=== PATIENT | female | born 1975 | race Caucasian/White ===

== ENCOUNTER → 2018-09-30 12:05 | Outpatient (CLI) | payer OTHER, SELFPAY ==
[2018-09-30 12:51] LABS: Add Manual Diff / Slide Review NO; Basophils Absolute Auto 0 /uL (0-100); Basophils Percent Auto 0.5 % (0-2); Eosinophils Absolute Auto 100 /uL (0-450); Eosinophils Percent Auto 2.1 % (2-4); Hematocrit 40.1 % (36-46); Hemoglobin 13.2 g/dL (12.0-16.0); Lymphocytes Absolute Auto 2300 /uL (1100-4500); Lymphocytes Percent Auto 34.8 % (25-40); Mean Corpuscular Hemoglobin 26.9 PG (26-34); Mean Corpuscular Volume 81.6 fL (80-100); Monocytes Absolute Auto 500 /uL (0-900); Monocytes Percent Auto 7.9 % (3-14); Neutrophils Absolute Auto 3700 /uL (1500-7000); Neutrophils Percent Auto 54.7 % (50-75); Platelet Count 272 X10^3/uL (150-400); Red Blood Cell Count 4.91 X10^6/uL (4.0-5.2); Red Cell Distribution Width 15.5 % (11.6-14.8); White Blood Cell Count 6.7 X10^3/uL (4.5-11.0)
[2018-09-30 13:34] LABS: Alanine Aminotransferase 26 IU/L (9-52); Albumin 4.1 g/dL (3.5-5.0); Albumin Globulin Ratio 1.1 (1.0-2.8); Alkaline Phosphatase 78 U/L (38-126); Aspartate Aminotransferase 17 IU/L (14-36); Bilirubin Total 0.4 mg/dL (0.2-1.3); Blood Urea Nitrogen 9 mg/dL (7-17); Calcium 8.8 mg/dL (8.4-10.2); Carbon Dioxide 23 mmol/L (22-32); Chloride 108 mmol/L (98-107); Cholesterol 146 mg/dL (140-199); Estimated Glomerular Filt Rate > 60.0 mL/min (>60); Globulin 3.6 g/dL (1.7-4.1); Glucose 91 mg/dL (70-100); HDL Cholesterol 36 mg/dL (40-60); HEMOLYSIS < 15 (0-50); LDL Cholesterol Calculated 98 mg/dL (<100); Potassium 4.3 mmol/L (3.4-5.1); Sodium 139 mmol/L (137-145); Total Protein 7.7 g/dL (6.3-8.2); Triglycerides 62 mg/dL (35-150)
[2018-09-30 13:59] LABS: TSH w/ Reflex to FT4 0.56 uIU/mL (0.47-4.68)
== END ==
PROVIDERS: Family Provider Family Medicine; PCP Family Medicine; Visit Provider Family Medicine
DX: Z00.00 Encounter for general adult medical examination without abnormal findings (principal); E78.1 Pure hyperglyceridemia
CPT/HCPCS: 36415; 80053; 80061; 84443; 85025

== ENCOUNTER → 2018-10-24 08:50 | Outpatient (CLI) | payer OTHER, SELFPAY ==
--- NOTE | 2018-10-24 08:51 | DI.US.S_ITS ---
PROCEDURE: US PELVIC COMPLETE INDICATIONS: MENORRHAGIA TECHNIQUE: Real-time scanning was performed of the pelvic organs, with image documentation. Additional endovaginal scanning was necessary due to incomplete visualization of the adnexal and endometrial structures by transabdominal scanning. COMPARISON: None. FINDINGS: Transabdominal scanning: Limited scanning through the kidneys shows no hydronephrosis. No pathologic free abdominal or pelvic fluid. Endovaginal scanning: Uterus: Uterus is normal in size at 4.9 x 5.0 x 8.6 cm, anteverted. The endometrium measures measures 16.8 mm in combined thickness, hyperplastic. Ovaries: Nonvisualization of the right ovary, left ovary measures 1.6 x 1.2 x 1.3 cm with a normal echotexture. IMPRESSION: Hyperplastic endometrial lining measuring up to 17 mm in maximal combined thickness. Nonvisualization of the right ovary, normal appearance of the left ovary. No abnormal free fluid throughout the peritoneal space seen. Dictated by: Joby Sanders M.D. on 10/24/2018 at 16:18 Approved by: Joby Sanders M.D. on 10/24/2018 at 16:20
== END ==
PROVIDERS: Family Provider Family Medicine; PCP Family Medicine; Visit Provider Family Medicine
DX: N92.0 Excessive and frequent menstruation with regular cycle (principal)
CPT/HCPCS: 76830; 76856

== ENCOUNTER → 2019-11-17 14:37 | Outpatient (CLI) | payer OTHER, SELFPAY ==
--- NOTE | 2019-11-17 14:39 | DI.CT.S_ITS ---
PROCEDURE: CT HEAD/BRAIN WO CON INDICATIONS: loss of sense of taste and smell, vertigo TECHNIQUE: Noncontrast 4.5 mm thick angled axial sections acquired from the foramen magnum to the vertex, with coronal and sagittal reformats. For radiation dose reduction, the following was used: automated exposure control, adjustment of mA and/or kV according to patient size. COMPARISON: None. FINDINGS: Image quality: Excellent. CSF spaces: Basal cisterns are patent. No extra-axial fluid collections. Ventricles are normal in size and shape. Brain: No midline shift. No intracranial masses or hemorrhage. Alarcon-white matter interface is normal. Skull and face: Calvarium and visualized facial bones are intact, without suspicious lesions. Sinuses: Visualized sinuses and mastoids are clear. IMPRESSION: No acute intracranial disease process. Dictated by: Paige Romero MD, PhD on 11/17/2019 at 14:53 Approved by: Paige Romero MD, PhD on 11/17/2019 at 14:55
--- NOTE | 2019-11-17 14:39 | DI.CT.S_ITS ---
PROCEDURE: CT CERVICAL SPINE WO CON INDICATIONS: loss of sense of taste and smell, vertigo TECHNIQUE: Noncontrast 3 mm thick sections acquired from the skull base to the T4 level. Sagittal and coronal reformats were then constructed. For radiation dose reduction, the following was used: automated exposure control, adjustment of mA and/or kV according to patient size. COMPARISON: None. FINDINGS: Image quality: Excellent. Bones: No fractures or dislocations. Visualized superior ribs are intact. Spine degenerative disc disease and facet arthropathy. Soft tissues: Prevertebral soft tissues are normal in thickness. No paravertebral hematomas. No apical pneumothoraces. IMPRESSION: No fracture. No acute osseous lesion. If symptoms and/or clinical suspicion for pathology persists, evaluation with MRI may be helpful for further assessment. Dictated by: Paige Romero MD, PhD on 11/17/2019 at 14:56 Approved by: Paige Romero MD, PhD on 11/17/2019 at 15:03
== END ==
PROVIDERS: Family Provider Family Medicine; PCP Family Medicine; Referring Provider Family Medicine; Visit Provider Family Medicine
DX: R43.2 Parageusia (principal); R43.0 Anosmia; R42 Dizziness and giddiness; M50.30 Other cervical disc degeneration, unspecified cervical region; M47.812 Spondylosis without myelopathy or radiculopathy, cervical region
CPT/HCPCS: 70450; 72125

== ENCOUNTER → 2019-11-21 10:48 | Outpatient (CLI) | payer OTHER, SELFPAY ==
[2019-11-21 11:32] LABS: Add Manual Diff / Slide Review NO; Basophils Absolute Auto 0 /uL (0-100); Basophils Percent Auto 0.5 % (0-2); Eosinophils Absolute Auto 100 /uL (0-450); Eosinophils Percent Auto 1.5 % (2-4); Hematocrit 40.7 % (36-46); Hemoglobin 13.6 g/dL (12.0-16.0); Lymphocytes Absolute Auto 2300 /uL (1100-4500); Lymphocytes Percent Auto 32.8 % (25-40); Mean Corpuscular HGB Conc 33.4 % (30-36); Mean Corpuscular Hemoglobin 27.4 PG (26-34); Mean Corpuscular Volume 82.1 fL (80-100); Monocytes Absolute Auto 500 /uL (0-900); Monocytes Percent Auto 6.7 % (3-14); Neutrophils Absolute Auto 4100 /uL (1500-7000); Neutrophils Percent Auto 58.5 % (50-75); Platelet Count 259 X10^3/uL (150-400); Red Blood Cell Count 4.96 X10^6/uL (4.0-5.2); Red Cell Distribution Width 14.8 % (11.6-14.8)
[2019-11-21 11:45] LABS: Alanine Aminotransferase 15 IU/L (<35); Albumin 4.4 g/dL (3.5-5.0); Albumin Globulin Ratio 1.2 (1.0-2.8); Alkaline Phosphatase 77 U/L (38-126); Aspartate Aminotransferase 20 IU/L (14-36); Bilirubin Total 0.5 mg/dL (0.2-1.3); Blood Urea Nitrogen 13 mg/dL (7-17); Calcium 9.4 mg/dL (8.4-10.2); Carbon Dioxide 27 mmol/L (22-32); Chloride 103 mmol/L (98-107); Cholesterol 156 mg/dL (140-199); Estimated Glomerular Filt Rate > 60.0 mL/min (>60); Globulin 3.7 g/dL (1.7-4.1); Glucose 85 mg/dL (70-100); HDL Cholesterol 33 mg/dL (40-60); HEMOLYSIS < 15 (0-50); LDL Cholesterol Calculated 111 mg/dL (<100); Potassium 4.4 mmol/L (3.4-5.1); Sodium 135 mmol/L (137-145); Total Protein 8.1 g/dL (6.3-8.2); Triglycerides 60 mg/dL (35-150)
== END ==
PROVIDERS: Family Provider Family Medicine; PCP Family Medicine; Referring Provider Family Medicine; Visit Provider Family Medicine
DX: E66.01 Morbid (severe) obesity due to excess calories (principal); E78.1 Pure hyperglyceridemia; I10 Essential (primary) hypertension; N92.0 Excessive and frequent menstruation with regular cycle; Z68.43 Body mass index [BMI] 50.0-59.9, adult
CPT/HCPCS: 36415; 80053; 80061; 85025

== ENCOUNTER → 2020-04-09 17:26 | Outpatient (CLI) | payer OTHER, SELFPAY ==
--- NOTE | 2020-04-09 17:29 | DI.RAD.S_ITS ---
PROCEDURE: XR CHEST 2V INDICATIONS: SOB TECHNIQUE: 2 views of the chest were acquired. COMPARISON: [facility], , CHEST 2 VIEW, 10/29/2014, 10:45. FINDINGS: Surgical changes and devices: None. Lungs and pleura: Lungs are clear. No pleural effusions or pneumothorax. Mediastinum: Mediastinal contours are normal. Heart size is normal. Bones and chest wall: No suspicious bony abnormalities. Soft tissues appear unremarkable. IMPRESSION: Normal for age, source of current shortness of breath symptoms is not seen. Dictated by: Joby Sanders M.D. on 04/09/2020 at 18:38 Approved by: Joby Sanders M.D. on 04/09/2020 at 18:39
[2020-04-09 17:50] LABS: Add Manual Diff / Slide Review NO; Basophils Absolute Auto 100 /uL (0-100); Basophils Percent Auto 0.5 % (0-2); Eosinophils Absolute Auto 200 /uL (0-450); Eosinophils Percent Auto 1.6 % (2-4); Hematocrit 41.9 % (36-46); Hemoglobin 14.3 g/dL (12.0-16.0); Lymphocytes Absolute Auto 3200 /uL (1100-4500); Lymphocytes Percent Auto 32.4 % (25-40); Mean Corpuscular HGB Conc 34.1 % (30-36); Mean Corpuscular Hemoglobin 28.2 PG (26-34); Mean Corpuscular Volume 82.6 fL (80-100); Monocytes Absolute Auto 800 /uL (0-900); Monocytes Percent Auto 7.7 % (3-14); Neutrophils Absolute Auto 5700 /uL (1500-7000); Neutrophils Percent Auto 57.8 % (50-75); Platelet Count 301 X10^3/uL (150-400); Red Blood Cell Count 5.07 X10^6/uL (4.0-5.2); White Blood Cell Count 9.8 X10^3/uL (4.5-11.0)
[2020-04-09 18:05] LABS: BUN Creatinine Ratio 20.3 (6-22); Blood Urea Nitrogen 13 mg/dL (7-17); Calcium 9.9 mg/dL (8.4-10.2); Carbon Dioxide 27 mmol/L (22-32); Chloride 102 mmol/L (98-107); Estimated Glomerular Filt Rate > 60.0 mL/min (>60); Glucose 95 mg/dL (70-100); HEMOLYSIS < 15 (0-50); Potassium 4.4 mmol/L (3.4-5.1); Sodium 137 mmol/L (137-145)
[2020-04-09 18:14] LABS: NT-proBNP (BNP-Adult 18+) 22 pg/mL (<125)
== END ==
PROVIDERS: Family Provider Family Medicine; PCP Family Medicine; Referring Provider Registered Nurse Diabetes Educator; Visit Provider Registered Nurse Diabetes Educator
DX: R06.02 Shortness of breath (principal); R60.9 Edema, unspecified
CPT/HCPCS: 36415; 71046; 80048; 83880; 85025

== ENCOUNTER → 2020-05-24 09:42 | Outpatient (CLI) | payer OTHER, SELFPAY ==
--- NOTE | 2020-05-24 09:44 | DI.RAD.S_ITS ---
PROCEDURE: XR LUMBAR SPINE 2-3V INDICATIONS: right sided sciatica TECHNIQUE: 3 views of the lumbar spine were acquired. COMPARISON: None. FINDINGS: Bones: Five hry-wrh-hafhuot vertebrae are present. There is mildly abnormal bony alignment, with grade 2 anterolisthesis of L4 on L5, secondary to what appears to be degenerative disc height reduction and relatively severe facet osteoarthritis allowing ligamentous laxity. No vertebral body compression fractures. No suspicious bony lesions. Soft tissues: Overlying bowel gas pattern is normal. No suspicious soft tissue calcifications. IMPRESSION: Grade 2 anterolisthesis of L4 on L5 associated with moderately severe L4-5 degenerative disc height reduction and also moderately severe facet osteoarthritis at this level. At the level immediately below there is a slight degree of anterolisthesis of L5 on S1 secondary to the same degenerative changes but present to a lesser degree. Spinal and foraminal stenosis would be expected given these findings. MR scanning of the LS spine likely is warranted. Dictated by: Joby Sanders M.D. on 05/24/2020 at 11:29 Approved by: Joby Sanedrs M.D. on 05/24/2020 at 11:49
== END ==
PROVIDERS: Family Provider Family Medicine; PCP Family Medicine; Referring Provider Family Medicine; Visit Provider Family Medicine
DX: M54.31 Sciatica, right side (principal); M43.16 Spondylolisthesis, lumbar region; M47.816 Spondylosis without myelopathy or radiculopathy, lumbar region
CPT/HCPCS: 72100

== ENCOUNTER → 2020-06-14 16:43 | Outpatient (CLI) | payer OTHER, SELFPAY | PROVIDERS: Family Provider Family Medicine; PCP Family Medicine; Referring Provider Family Medicine; Visit Provider Family Medicine | DX: M47.819 Spondylosis without myelopathy or radiculopathy, site unspecified (principal); Z53.20 Procedure and treatment not carried out because of patient's decision for unspecified reasons ==

== ENCOUNTER → 2020-06-27 16:58 | Outpatient (CLI) | payer OTHER, SELFPAY ==
--- NOTE | 2020-06-27 | DI.MRI.S_ITS ---
PROCEDURE: MR LUMBAR SPINE WO CON INDICATIONS: SPONDYLOSIS W/O MYELOPATHY OR RADICULOPATHY TECHNIQUE: Noncontrast sagittal T1 spin echo and T2 fast echo, sagittal STIR, axial T1 and T2 fast spin echo through the lumbar spine. In cases with scoliosis, additional coronal T2 fast spin echo may be performed. COMPARISON: [facility], CR, XR LUMBAR SPINE 2-3V, 05/24/2020, 9:52. FINDINGS: Image quality: Excellent. Alignment and Curvature: Bilateral L4 pars defects with approximately millimeter anterolisthesis of L4 on L5. Otherwise normal alignment. Vertebral body heights maintained. Bone Marrow: At L4-L5 there is facet osteoarthropathy with periarticular bone marrow and soft tissue edema extending into the pedicles. No suspicious focal marrow signal abnormality. Spinal Cord: Normal position and appearance of the conus. The visualized portion of the distal thoracic cord is unremarkable. Regional Soft Tissues: Periarticular soft tissue edema in association with facet osteoarthropathy at L4-L5 and to a lesser degree at L5-S1. T12-L1: No spinal canal or neural foraminal stenosis. L1-L2: Diffuse disc bulge flattens the ventral thecal sac without mass effect upon the traversing L3 nerve roots. No neural foraminal stenosis. L2-L3: No spinal canal or neural foraminal stenosis. L3-L4: No spinal canal or neural foraminal stenosis. L4-L5: Pseudo bulge related to the anterolisthesis flattens the ventral thecal sac. No mass effect upon the traversing L5 nerve roots. Foraminal components of the disc bulge and neural foraminal distortion secondary to the listhesis combine with facet hypertrophy and buckling of the ligamentum flavum to produce moderate left greater than right neural foraminal stenosis. There is flattening/deformation of the exiting left L4 nerve root within the foramen (series 2, image 13). L5-S1: Disc bulge without mass effect upon the S1 nerve roots. Neural foraminal height loss and foraminal components of the disc bulge combine with facet hypertrophy and buckling of the ligamentum flavum to produce moderate bilateral neural foraminal stenosis. Disc material abuts the exiting L5 nerve roots bilaterally, with possible flattening/deformation on the left. IMPRESSION: 1. Bilateral pars defects at L4 with grade 1 spondylolisthesis of L4 on L5 measuring 4 millimeters. Associated facet osteoarthropathy at L4-L5 with periarticular bone marrow and soft tissue edema, potential sources of nonradicular axial back pain. 2. Varying degrees of neural foraminal stenosis, moderate on the left at L4-L5 and L5-S1 with flattening/deformation of the exiting L4 and L5 nerve roots, respectively. Correlate for any corresponding radicular symptoms. 3. No significant spinal canal stenosis. Dictated by: Lucas Wooten M.D. on 06/28/2020 at 8:25 Approved by: Lucas Wooten M.D. on 06/28/2020 at 8:32
== END ==
PROVIDERS: Family Provider Family Medicine; PCP Family Medicine; Referring Provider Family Medicine; Visit Provider Family Medicine
DX: M47.816 Spondylosis without myelopathy or radiculopathy, lumbar region (principal); M43.16 Spondylolisthesis, lumbar region; M48.061 Spinal stenosis, lumbar region without neurogenic claudication; M48.07 Spinal stenosis, lumbosacral region
CPT/HCPCS: 72148

== ENCOUNTER → 2021-05-28 09:29 | Outpatient (CLI) | payer BC, SELFPAY ==
[2021-05-28 11:40] LABS: Alanine Aminotransferase 20 IU/L (<35); Albumin 4.2 g/dL (3.5-5.0); Albumin Globulin Ratio 1.2 (1.0-2.8); Alkaline Phosphatase 74 U/L (38-126); Aspartate Aminotransferase 25 IU/L (14-36); BUN Creatinine Ratio 22.8 (6-22); Bilirubin Total 0.6 mg/dL (0.2-1.3); Blood Urea Nitrogen 13 mg/dL (7-17); Calcium 8.7 mg/dL (8.4-10.2); Carbon Dioxide 28 mmol/L (22-32); Chloride 106 mmol/L (98-107); Cholesterol 160 mg/dL (140-199); Estimated Glomerular Filt Rate > 60.0 mL/min (>60); Globulin 3.5 g/dL (1.7-4.1); Glucose 92 mg/dL (70-100); HDL Cholesterol 39 mg/dL (40-60); HEMOLYSIS 52 (0-50); LDL Cholesterol Calculated 103 mg/dL (<100); Potassium 4.2 mmol/L (3.4-5.1); Sodium 139 mmol/L (137-145); Total Protein 7.7 g/dL (6.3-8.2); Triglycerides 90 mg/dL (35-150)
[2021-05-28 11:57] LABS: Microalbumin Urine Random 2.8 mg/dL (0-1.6)
[2021-05-28 12:09] LABS: TSH w/ Reflex to FT4 1.05 uIU/mL (0.47-4.68)
[2021-05-28 12:19] LABS: Creatinine Urine Random 199.9 mg/dL
== END ==
PROVIDERS: Family Provider Family Medicine; PCP Family Medicine; Referring Provider Family Medicine; Visit Provider Family Medicine
DX: R60.9 Edema, unspecified (principal); E66.01 Morbid (severe) obesity due to excess calories; Z68.43 Body mass index [BMI] 50.0-59.9, adult; I10 Essential (primary) hypertension; E78.1 Pure hyperglyceridemia
CPT/HCPCS: 36415; 80053; 80061; 82043; 82570; 84443

== ENCOUNTER → 2022-10-09 10:45 | Outpatient (CLI) | payer BC, SELFPAY ==
[2022-10-09 11:25] LABS: Hematocrit 42.3 % (36-46); Hemoglobin 14.3 g/dL (12.0-16.0); Mean Corpuscular HGB Conc 33.7 % (30-36); Mean Corpuscular Hemoglobin 27.7 PG (26-34); Mean Corpuscular Volume 82.1 fL (80-100); Platelet Count 269 X10^3/uL (150-400); Red Blood Cell Count 5.16 X10^6/uL (4.0-5.2); Red Cell Distribution Width 14.4 % (11.6-14.8); White Blood Cell Count 6.7 X10^3/uL (4.5-11.0)
[2022-10-09 11:44] LABS: Alanine Aminotransferase 19 IU/L (<35); Albumin 4.1 g/dL (3.5-5.0); Albumin Globulin Ratio 1.1 (1.0-2.8); Alkaline Phosphatase 93 U/L (38-126); Aspartate Aminotransferase 19 IU/L (14-36); BUN Creatinine Ratio 23.5 (6-22); Bilirubin Total 0.7 mg/dL (0.2-1.3); Blood Urea Nitrogen 12 mg/dL (7-17); Calcium 8.9 mg/dL (8.4-10.2); Carbon Dioxide 25 mmol/L (22-32); Chloride 104 mmol/L (98-107); Cholesterol 169 mg/dL (140-199); Estimated Glomerular Filt Rate > 60 mL/min (>60); Globulin 3.7 g/dL (1.7-4.1); Glucose 94 mg/dL (70-100); HDL Cholesterol 32 mg/dL (40-60); HEMOLYSIS < 15 (0-50); LDL Cholesterol Calculated 120 mg/dL (<100); Potassium 4.5 mmol/L (3.4-5.1); Sodium 136 mmol/L (137-145); Total Protein 7.8 g/dL (6.3-8.2); Triglycerides 86 mg/dL (35-150)
[2022-10-09 12:18] LABS: TSH w/ Reflex to FT4 1.32 uIU/mL (0.47-4.68)
== END ==
PROVIDERS: Family Provider Family Medicine; PCP Registered Nurse Diabetes Educator; Referring Provider Registered Nurse Diabetes Educator; Visit Provider Registered Nurse Diabetes Educator
DX: E78.5 Hyperlipidemia, unspecified (principal); I10 Essential (primary) hypertension; Z00.00 Encounter for general adult medical examination without abnormal findings
CPT/HCPCS: 36415; 80053; 80061; 84443; 85027

== ENCOUNTER → 2023-10-26 09:28 | Outpatient (CLI) | payer OTHER, SELFPAY ==
[2023-10-26 10:07] LABS: Hematocrit 41.2 % (36-46); Hemoglobin 13.9 g/dL (12.0-16.0); Mean Corpuscular HGB Conc 33.8 % (30-36); Mean Corpuscular Volume 79.9 fL (80-100); Platelet Count 335 X10^3/uL (150-400); Red Blood Cell Count 5.16 X10^6/uL (4.0-5.2); White Blood Cell Count 6.9 X10^3/uL (4.5-11.0)
[2023-10-26 10:35] LABS: Alanine Aminotransferase 18 IU/L (<35); Albumin 4.3 g/dL (3.5-5.0); Albumin Globulin Ratio 1.2 (1.0-2.8); Alkaline Phosphatase 80 U/L (38-126); Aspartate Aminotransferase 17 IU/L (14-36); BUN Creatinine Ratio 14.1 (6-22); Bilirubin Total 0.4 mg/dL (0.2-1.3); Blood Urea Nitrogen 9 mg/dL (7-17); Calcium 9.5 mg/dL (8.4-10.2); Carbon Dioxide 25 mmol/L (22-32); Chloride 101 mmol/L (98-107); Cholesterol 151 mg/dL (140-199); Estimated Glomerular Filt Rate > 60 mL/min (>60); Globulin 3.7 g/dL (1.7-4.1); Glucose 105 mg/dL (70-100); HDL Cholesterol 38 mg/dL (40-60); HEMOLYSIS < 15 (0-50); LDL Cholesterol Calculated 93 mg/dL (<100); Potassium 4.6 mmol/L (3.4-5.1); Sodium 136 mmol/L (137-145); Triglycerides 98 mg/dL (35-150)
[2023-10-26 10:56] LABS: TSH w/ Reflex to FT4 1.38 uIU/mL (0.47-4.68)
== END ==
PROVIDERS: Family Provider Family Medicine; PCP Registered Nurse Diabetes Educator; Referring Provider Registered Nurse Diabetes Educator; Visit Provider Registered Nurse Diabetes Educator
DX: I10 Essential (primary) hypertension (principal); R42 Dizziness and giddiness; E78.5 Hyperlipidemia, unspecified
CPT/HCPCS: 36415; 80053; 80061; 84443; 85027

== ENCOUNTER → 2023-12-06 10:40 | Outpatient (CLI) | payer OTHER, SELFPAY ==
--- NOTE | 2023-12-06 10:43 | DI.RAD.S_ITS ---
PROCEDURE: XR KNEE LT 3V INDICATIONS: eval TECHNIQUE: 3 views of the knee were acquired. COMPARISON: None. FINDINGS: Bones: No fractures or dislocations. No suspicious bony lesions. Mild medial compartment joint space narrowing. Moderate lateral facet joint space narrowing. Soft tissues: No joint effusion. No suspicious soft tissue calcifications. IMPRESSION: Cllz-oy-kiumsmen osteoarthritis Approved by: Adriano Carrion M.D. on 12/06/2023 at 18:55
== END ==
PROVIDERS: Family Provider Family Medicine; PCP Registered Nurse Diabetes Educator; Referring Provider Registered Nurse Diabetes Educator; Visit Provider Registered Nurse Diabetes Educator
DX: M17.12 Unilateral primary osteoarthritis, left knee (principal); M25.562 Pain in left knee; G89.29 Other chronic pain
CPT/HCPCS: 73562

== ENCOUNTER → 2025-01-26 10:01 | Outpatient (CLI) | payer OTHER, SELFPAY ==
[2025-01-26 10:47] LABS: Hemoglobin 13.5 g/dL (12.0-16.0); Mean Corpuscular HGB Conc 33.6 % (30-36); Mean Corpuscular Hemoglobin 28.1 PG (26-34); Mean Corpuscular Volume 83.5 fL (80-100); Platelet Count 323 X10^3/uL (150-400); Red Blood Cell Count 4.79 X10^6/uL (4.0-5.2); Red Cell Distribution Width 14.7 % (11.6-14.8); White Blood Cell Count 6.4 X10^3/uL (4.5-11.0)
[2025-01-26 10:56] LABS: Hemoglobin A1C% w Est Avg Glu 4.9 % (4.0-6.0)
[2025-01-26 11:16] LABS: Alanine Aminotransferase 19 IU/L (<35); Albumin 4.3 g/dL (3.5-5.0); Albumin Globulin Ratio 1.4 (1.0-2.8); Alkaline Phosphatase 71 U/L (38-126); Aspartate Aminotransferase 19 IU/L (14-36); BUN Creatinine Ratio 23.2 (6-22); Bilirubin Total 0.6 mg/dL (0.2-1.3); Blood Urea Nitrogen 16 mg/dL (7-17); Calcium 9.6 mg/dL (8.4-10.2); Carbon Dioxide 24 mmol/L (22-32); Chloride 105 mmol/L (98-107); Cholesterol 168 mg/dL (140-199); Estimated Glomerular Filt Rate > 60 mL/min (>60); Glucose 76 mg/dL (70-99); HDL Cholesterol 47 mg/dL (40-60); HEMOLYSIS < 15 (0-50); LDL Cholesterol Calculated 110 mg/dL (<100); Potassium 4.5 mmol/L (3.4-5.1); Sodium 136 mmol/L (137-145); Total Protein 7.3 g/dL (6.3-8.2); Triglycerides 54 mg/dL (35-150)
[2025-01-26 11:32] LABS: TSH w/ Reflex to FT4 0.75 uIU/mL (0.47-4.68)
== END ==
PROVIDERS: Family Provider Family Medicine; PCP Registered Nurse Diabetes Educator; Referring Provider Registered Nurse Diabetes Educator; Visit Provider Registered Nurse Diabetes Educator
DX: R73.01 Impaired fasting glucose (principal); E78.5 Hyperlipidemia, unspecified; I10 Essential (primary) hypertension
CPT/HCPCS: 36415; 80053; 80061; 83036; 84443; 85027

== ENCOUNTER → 2025-03-23 11:45 | Outpatient (CLI) | payer OTHER, SELFPAY ==
--- NOTE | 2025-03-23 11:46 | DI.US.S_ITS ---
PROCEDURE: US PELVIC COMPLETE INDICATIONS: METROMENORRHAGIA TECHNIQUE: Real-time scanning was performed of the pelvic organs, with image documentation. Additional endovaginal scanning was necessary due to incomplete visualization of the adnexal and endometrial structures by transabdominal scanning. COMPARISON: [facility], US, US PELVIC COMPLETE, 06/27/2019, 16:39. FINDINGS: Uterus: Uterus is anteverted and measures approximately 7.1 x 5.2 x 4.9 cm. The myometrium is heterogeneous, dense with suspected leiomyomata the largest midline posterior intramural measuring up to approximately 3.7 x 3.4 x 3.0 cm. The endometrium measures 8 mm combined thickness. Several cervical nabothian cysts Ovaries: The right ovary measures 2.4 x 2.2 x 1.5 cm, with a calculated ovarian volume of 4.1 cc. The left ovary measures 2.8 x 2.4 x 2.2 cm, with a calculated ovarian volume of 7.7 cc. The ovaries have a normal sonographic appearance. Less than 12 follicles can be seen in each ovary. Left ovarian/adnexal anechoic simple cyst 2.1 x 2.0 x 1.9 cm. Other: No pathologic free abdominal or pelvic fluid. IMPRESSION: Uterine leiomyomata largest 3.7 cm. Endometrial echo complex 8 mm within normal limits. Left ovarian/adnexal 2.1 cm cyst. If symptoms persist or worsen, or there is high clinical suspicion of pelvic abnormality, CT or MRI could be performed. We strive to produce accurate, complete, and clear reports of imaging services. To assist us in improving patient care, this report was composed using standard report templates and voice recognition software. Therefore, it may contain abnormal punctuation, insertions and/or omissions. Occasional wrong-word or sound-alike substitutions may occur. Though we review the report and make efforts to correct it, we do recommend that the report be read carefully in proper context to recognize any text inaccuracies. Dictated by: Travis Bocanegra M.D. on 03/26/2025 at 17:15 Approved by: Travis Bocanegra M.D. on 03/26/2025 at 17:23
== END ==
LOC: US 11:46
PROVIDERS: PCP Registered Nurse Diabetes Educator; Referring Provider Registered Nurse Diabetes Educator; Visit Provider Registered Nurse Diabetes Educator
DX: N92.1 Excessive and frequent menstruation with irregular cycle (principal); D25.1 Intramural leiomyoma of uterus; N83.202 Unspecified ovarian cyst, left side; N88.8 Other specified noninflammatory disorders of cervix uteri
CPT/HCPCS: 76830; 76856

== ENCOUNTER → 2025-04-22 14:35 | Outpatient (CLI) | payer OTHER, SELFPAY ==
--- NOTE | 2025-04-22 14:36 | DI.MRI.S_ITS ---
PROCEDURE: MR PELVIS WO/W CON INDICATIONS: further eval pelvic US findings, metromenorrhia TECHNIQUE: Coronal HASTE, sagittal breath-hold T2 FSE; axial T1 FSE with and without fat saturation through the pelvis. Optional long- and short-axis uterine nonbreath-hold T2 FSE through the uterus. Sagittal or axial dynamic VIBE during administration of contrast. Post-contrast axial or coronal VIBE/2-D FLASH with fat saturation from the iliac crests to the symphysis. Optional diffusion weighted imaging and ADC may be performed. COMPARISON: [facility], US, US PELVIC COMPLETE, 03/23/2025, 12:20. FINDINGS: Image quality: Diagnostic Lower abdomen: Lower bowel loops are unremarkable. No pathologic ascites Bladder: Unremarkable Reproductive organs: Endometrium measures up to 1 cm. Junctional zone is within normal limits, measuring 0.8 cm. There are nabothian cysts in the cervix. Suspected defect. At the uterine fundus, there is a 2.4 x 3.5 x 2.7 cm intermediate density lesion protruding in the into the atrium. Homogeneous enhancement is seen. Suspect dominant left ovarian cyst measuring 1.8 x 1.3 cm, likely physiologic. No significant adnexal abnormality otherwise Rectum: Unremarkable Vessels and lymph nodes: No aneurysmal artery identified. No enlarged lymph nodes by size criteria Pelvic wall: Unremarkable Bones: No aggressive appearing osseous abnormality IMPRESSION: Uterine fundal lesion measures up to 3.5 x 2.7 cm, corresponding to ultrasound finding, partially involving the endometrium (FIGO 1). Signal intensity is greater than expected for a simple fibroid. This is most commonly an atypical fibroid, although another type of benign or malignant uterine neoplasm remains possible. Consider sampling or follow-up imaging to reassess size, depending on clinical context. Nonthickened endometrium and junctional zone. Dictated by: Pierce Lindsey M.D. on 04/23/2025 at 8:32 Approved by: Pierce Lindsey M.D. on 04/23/2025 at 8:42
== END ==
LOC: MRI 14:35
PROVIDERS: PCP Registered Nurse Diabetes Educator; Referring Provider Registered Nurse Diabetes Educator; Visit Provider Registered Nurse Diabetes Educator
DX: R93.89 Abnormal findings on diagnostic imaging of other specified body structures (principal); N92.1 Excessive and frequent menstruation with irregular cycle; N97.0 Female infertility associated with anovulation; D21.9 Benign neoplasm of connective and other soft tissue, unspecified; N83.209 Unspecified ovarian cyst, unspecified side
CPT/HCPCS: 72197; A9579

== ENCOUNTER 2025-06-28 06:27 | Day surgery (SDC) | payer OTHER, SELFPAY ==
[2025-06-20 10:11] VITALS: BMI 43.4
[2025-06-28] VITALS (21 sets, daily range): BP systolic 87–137; BP diastolic 47–80; PULSE 56–89; RESP 14–21; TEMP 35.6–36.6; O2SAT 89–100; BMI 42.0
[2025-06-28] MEDS: ACETAMINOPHEN 325 MG TABLET 975 MG PO (07:09)
[2025-06-28] MEDS: FAMOTIDINE 20 MG/2 ML VIAL IV (07:09)
[2025-06-28] MEDS: LACTATED RINGERS 1,000 ML 42 ML IV ×2 (07:09→10:48)
[2025-06-28] MEDS: GABAPENTIN 300 MG CAPSULE PO (07:09)
--- NOTE | 2025-06-28 07:36 | PM.PREOP ---
Pre-operative Note COVID-19 COVID-19 status: Not tested Interval Note History & Physical reviewed/Exam performed by Physician: Yes Changes to H&P: No
[2025-06-28] MEDS: SCOPOLAMINE 1 PATCH TOP (07:48)
--- NOTE | 2025-06-28 08:33 | SUR.OPER ---
Lithotomy on padded OR bed. Prone pillow to face. [place] Pad Positioner under torso. Head on pillow, arms padded and tucked at sides. Purple safety strap to upper body. IV sites paddded with purple foam. Legs secured in padded yellow fins stirrups.
--- NOTE | 2025-06-28 11:30 | P.OP_ITS ---
Operative Date/Time/Diagnoses Date of procedure: 06/28/25 Time of procedure: 08:15 Pre-op diagnosis: Menometrorrhagia Uterine fibroids Post-op diagnosis: same Procedure & Clinicians Procedure: Procedures Operation Date: 06/28/25 07:45 Actual Procedure Side Surgeon michael Robot assisted total laparoscopic hysterectomy with bilateral salpingectomy Bilateral Manuel Barker MD Indications: Maricarmen is a 49-year-old with progressively severe menometrorrhagia resulting in accidents and overflows as well as missed days of work who presents for evaluation and possible scheduling of hysterectomy. Pelvic ultrasound in March 2025: FINDINGS: Uterus: Uterus is anteverted and measures approximately 7.1 x 5.2 x 4.9 cm. The myometrium is heterogeneous, dense with suspected leiomyomata the largest midline posterior intramural measuring up to approximately 3.7 x 3.4 x 3.0 cm. The endometrium measures 8 mm combined thickness. Several cervical nabothian cysts Ovaries: The right ovary measures 2.4 x 2.2 x 1.5 cm, with a calculated ovarian volume of 4.1 cc. The left ovary measures 2.8 x 2.4 x 2.2 cm, with a calculated ovarian volume of 7.7 cc. The ovaries have a normal sonographic appearance. Less than 12 follicles can be seen in each ovary. Left ovarian/adnexal anechoic simple cyst 2.1 x 2.0 x 1.9 cm. Other: No pathologic free abdominal or pelvic fluid. IMPRESSION: Uterine leiomyomata largest 3.7 cm. Endometrial echo complex 8 mm within normal limits. Left ovarian/adnexal 2.1 cm cyst. If symptoms persist or worsen, or there is high clinical suspicion of pelvic abnormality, CT or MRI could be performed. Subsequent MRI in April 2025 shows: FINDINGS: Image quality: Diagnostic Lower abdomen: Lower bowel loops are unremarkable. No pathologic ascites Bladder: Unremarkable Reproductive organs: Endometrium measures up to 1 cm. Junctional zone is within normal limits, measuring 0.8 cm. There are nabothian cysts in the cervix. Suspected defect. At the uterine fundus, there is a 2.4 x 3.5 x 2.7 cm intermediate density lesion protruding in the into the atrium. Homogeneous enhancement is seen. Suspect dominant left ovarian cyst measuring 1.8 x 1.3 cm, likely physiologic. No significant adnexal abnormality otherwise Rectum: Unremarkable Vessels and lymph nodes: No aneurysmal artery identified. No enlarged lymph nodes by size criteria Pelvic wall: Unremarkable Bones: No aggressive appearing osseous abnormality IMPRESSION: Uterine fundal lesion measures up to 3.5 x 2.7 cm, corresponding to ultrasound finding, partially involving the endometrium (FIGO 1). Signal intensity is greater than expected for a simple fibroid. This is most commonly an atypical fibroid, although another type of benign or malignant uterine neoplasm remains possible. Consider sampling or follow-up imaging to reassess size, depending on clinical context. Pap smear is current and endometrial sampling in office was not possible. After discussion regarding all options, patient wishes to move forward with total laparoscopic hysterectomy with bilateral salpingectomy. Case request submitted. The patient has had multiple sections and has under gone bilateral partial salpingectomy for sterilization. She presents today for her scheduled surgery. Surgeon: Manuel Barker Anesthesia Type: General Operative Notes Findings: The uterus is 6-8 weeks in size and myomatous. Fallopian tubes showed changes consistent with prior partial salpingectomies. Both ovaries appeared to be normal. There is extensive scarring in the anterior cul-de-sac due to prior sections. In addition there is also omental adhesions to the anterior abdominal wall which had to be taken down to permit visualization of the pelvis. The remainder of the abdomen and pelvis were normal laparoscopic evaluation. Closure Type: primary Specimen(s): left tube, right tube and uterus Applied: catheter Estimated blood loss (mL): 100 Blood products transfused: none Procedure in detail: With the patient under satisfactory general anesthesia in the modified dorsal lithotomy position, the perineum, vagina, and abdomen were prepped and draped in the usual manner for total laparoscopic hysterectomy with robotic assist.? A pre-surgical safety time-out was then taken in accordance with [facility] OR protocols.? A bivalve speculum was then placed in the vagina and the cervix visualized.? The anterior lip of the cervix was then grasped with single- tooth tenaculum and the endocervical canal dilated to 6 mm with Hegar dilators.? A stitch was then placed in the anterior lip of the cervix using 1. PDS and the suture was threaded through the colpotomy cup of the VCare which was then in troduced into the endometrial cavity without difficulty.? Once the VCare was placed, preparations for laparoscopy were initiated.? An 8 mm transverse incision was then made above the umbilicus after infiltration with 0.5% Marcaine with epinephrine.? A varies needle was then used to insufflate the abdominal cavity and once properly insufflated, an 8 mm trocar and sleeve were introduced through the incision into the abdominal cavity.? Correct placement of the sleeve in the abdominal cavity was confirmed with a 5 mm scope.? Two additional 8 mm trocars and sleeves were then placed laterally on the patient's right side using a similar technique, and 1 additional 8 mm trocar was then placed laterally on the patient's left side. ?The patient was then placed in 27 degree Trendelenburg position. ?Lysis of omental adhesions to the anterior abdominal wall was necessary to fully visualize the pelvis and this was performed with a combination of bipolar cautery and monopolar scissors. The robot was brought in and positioned on the patient's left side. ?The robotic scope was then placed through the 8 mm #2 Port and aimed at the uterus as the focal point of surgery.? A vessel sealer, fenestrated bipolar grasper, and laparoscopic scissors were then placed in the 3 remaining ports.? The pelvis was carefully inspected with the findings as noted above.? Attention was then turned to the left adnexa with the distal tube grasped with the fenestrated bipolar grasper. ?The vessel sealer was used to coagulate and divide the fimbria ovarica all the way over to the left cornua.? The vessel sealer was then used to coagulate and divide 1st the utero-ovarian ligament on the left followed by the round ligament on the left.? The dissection was carried down to the bladder reflection.? The peritoneum at the level of the bladder reflection was then taken down with the vessel sealer across the midline and the bladder was easily advanced.? The ascending uterine vessels were then taken on the left side with the fenestrated bipolar grasper and divided with the scissors.? There was no significant bleeding noted.? Attention was then turned to the right adnexa with the distal tube grasped with the fenestrated bipolar grasper.? The fimbria ovarica was then coagulated and divided with the vessel sealer and then dissection was carried across the mesosalpinx to the cornua on the right.? The utero-ovarian ligament was then coagulated and divided and the dissection carried down across the round ligament on the right down to the level of the vessels at the bladder reflection.? The bladder flap was then completed using the vessel sealer and the bladder further advanced beyond the level of the colpotomy cup.? The fenestrated bipolar grasping forceps were used to coagulate the ascending uterine vessels on the right side and they were transected then with the monopolar scissors.? Anterior colpotomy was then performed along the line of the colpotomy cup using the monopolar cutting current in the scissors in a similar posterior incision was made along the line of the colpotomy cup.? Once the ascending uterine vessels were isolated, each side was coagulated and divided with the fenestrated bipolar forceps and the monopolar scissors.? Once the uterus was completely freed, it was removed through the vaginal canal along with the VCare.? A moistened towel was then introduced into the vaginal canal as an obturator and the vaginal cuff was closed in 2 layers using 0 strata fix suture.? The pelvis was thoroughly irrigated and inspected for any other abnormality or bleeding.? There were no abnormalities or bleeding noted and the pneumoperitoneum was vented.? The laparoscopy port sleeves were then removed and each of the incisions were closed with 4-0 Monocryl using inverted interrupted stitches.? The port incisions were then covered with an appropriate dressing and the patient was awakened from anesthesia.? She was then transferred to the PACU for a period of observation and recovery after having tolerated the procedure well. Complications: none Post-operative Condition: stable Disposition: PACU Plan for aftercare: Routine PACU care with transfer to acute care for a period of recovery prior to discharge.
[2025-06-28] MEDS: KETOROLAC 30 MG/ML VIAL 15 MG IV (12:08)
[2025-06-28] MEDS: ALBUTEROL 2.5 MG/3 ML NEB (ADULT) INH (12:09)
[2025-06-28] MEDS: PHENAZOPYRIDINE 100 MG TABLET 200 MG PO ×3 (12:18→20:25)
--- NOTE | 2025-06-28 12:20 | SUR.PHASEI ---
patient given an incentive spirometer and an acapella device. teaching given to the patient on how to use and assisted the patient in using both. patient tolerated well and her oxygen saturation improved.
[2025-06-28] MEDS: LACTATED RINGERS 1,000 ML 100 ML IV (13:30)
[2025-06-28] MEDS: ACETAMINOPHEN 325 MG TABLET 650 MG PO (17:01)
[2025-06-28] MEDS: KETOROLAC 30 MG/ML VIAL IV (17:02)
--- NOTE | 2025-06-28 18:43 | PC.NURSE ---
patient request to have Jones removed, ambulated in room well able to get to bathroom, back to bed Jones removed, tolerated very well.
[2025-06-28] MEDS: DOCUSATE 100 MG CAPSULE 200 MG PO (20:25)
[2025-06-29] MEDS: KETOROLAC 30 MG/ML VIAL IV ×2 (01:18→06:24)
[2025-06-29] MEDS: ACETAMINOPHEN 325 MG TABLET 650 MG PO ×2 (01:19→06:24)
[2025-06-29 08:03] VITALS: BP 98/58; PULSE 71; RESP 20; TEMP 36.6; O2SAT 94
--- NOTE | 2025-06-29 08:40 | PM.DS.IH.1 ---
History of Present Illness History of Present Illness Date Patient Seen: 06/29/25 Time Patient Seen: 07:55 Chief complaint: Menometrorrhagia, uterine fibroids Narrative: Maricarmen is a 49-year-old with progressively severe menometrorrhagia resulting in accidents and overflows as well as missed days of work who presents for evaluation and possible scheduling of hysterectomy. Pelvic ultrasound in March 2025: FINDINGS: Uterus: Uterus is anteverted and measures approximately 7.1 x 5.2 x 4.9 cm. The myometrium is heterogeneous, dense with suspected leiomyomata the largest midline posterior intramural measuring up to approximately 3.7 x 3.4 x 3.0 cm. The endometrium measures 8 mm combined thickness. Several cervical nabothian cysts Ovaries: The right ovary measures 2.4 x 2.2 x 1.5 cm, with a calculated ovarian volume of 4.1 cc. The left ovary measures 2.8 x 2.4 x 2.2 cm, with a calculated ovarian volume of 7.7 cc. The ovaries have a normal sonographic appearance. Less than 12 follicles can be seen in each ovary. Left ovarian/adnexal anechoic simple cyst 2.1 x 2.0 x 1.9 cm. Other: No pathologic free abdominal or pelvic fluid. IMPRESSION: Uterine leiomyomata largest 3.7 cm. Endometrial echo complex 8 mm within normal limits. Left ovarian/adnexal 2.1 cm cyst. If symptoms persist or worsen, or there is high clinical suspicion of pelvic abnormality, CT or MRI could be performed. Subsequent MRI in April 2025 shows: FINDINGS: Image quality: Diagnostic Lower abdomen: Lower bowel loops are unremarkable. No pathologic ascites Bladder: Unremarkable Reproductive organs: Endometrium measures up to 1 cm. Junctional zone is within normal limits, measuring 0.8 cm. There are nabothian cysts in the cervix. Suspected defect. At the uterine fundus, there is a 2.4 x 3.5 x 2.7 cm intermediate density lesion protruding in the into the atrium. Homogeneous enhancement is seen. Suspect dominant left ovarian cyst measuring 1.8 x 1.3 cm, likely physiologic. No significant adnexal abnormality otherwise Rectum: Unremarkable Vessels and lymph nodes: No aneurysmal artery identified. No enlarged lymph nodes by size criteria Pelvic wall: Unremarkable Bones: No aggressive appearing osseous abnormality IMPRESSION: Uterine fundal lesion measures up to 3.5 x 2.7 cm, corresponding to ultrasound finding, partially involving the endometrium (FIGO 1). Signal intensity is greater than expected for a simple fibroid. This is most commonly an atypical fibroid, although another type of benign or malignant uterine neoplasm remains possible. Consider sampling or follow-up imaging to reassess size, depending on clinical context. Pap smear is current and endometrial sampling in office was not possible. After discussion regarding all options, patient wishes to move forward with total laparoscopic hysterectomy with bilateral salpingectomy. The patient has had multiple sections and has under gone bilateral partial salpingectomy for sterilization. She presents now for her scheduled surgery. Discharge Providers Provider Date of admission: 06/28/2025 Discharge Date: 06/29/25 Primary care physician: LAUREN Chan Discharge provider: Manuel Barker MD Summary Hospital Course Discharge Diagnosis: Intractable menometrorrhagia Uterine fibroids Status post robotic assisted total laparoscopic hysterectomy with bilateral salpingectomy Hospital Course: On the morning of 06/28/2025, the patient underwent an uneventful robotic assisted total laparoscopic hysterectomy with bilateral salpingectomy. Full details of the procedure well summarized on my operative note of that date. Following surgery the patient has done well but had significant difficulty with discomfort from Jones catheter following surgery. She has also been slow to ambulate but is now ambulating independently, tolerating a regular diet, and her pain is well-controlled with oral pain medications. She will be discharged at this time to home in an afebrile normotensive condition after counseling regarding precautionary symptoms, limitations of activity, medications, and plans for follow-up which will be in 2 weeks or as needed. Medications at discharge will include resumption of all preadmission medications as well as oxycodone 5 mg p.o. every 4-6 hours as needed for pain, dispense 20 with no refills, Lovenox 40 mg subQ daily times 10 days, and Cipro 500 mg p.o. b.i.d. x7 days for UTI prophylaxis. Status at Discharge Cognitive/behavioral status at discharge: oriented Functional status at discharge: independent ambulation Overall status at discharge: patient is progressing back to baseline Time Spent with Patient Time spent: Less than 30 minutes Exam Vital Signs (past 8 hours): - 06/29/25 08:03 Temperature 97.9 F Pulse Rate 71 Respiratory Rate 20 Blood Pressure 98/58 L Pulse Oximetry 94 Oxygen Delivery Method Nasal Cannula Oxygen Flow Rate 0 Const General: cooperative and comfortable Nutritional Appearance: average body habitus Orientation: alert and oriented x3 HENMT Head: normal to inspection, atraumatic and abrasion Ears: hearing grossly normal bilaterally Face and sinus: face symmetric Eyes General: appearance normal, both eyes and all related structures Conjunctivae: conjunctivae normal Sclera: sclerae normal EOM: EOM intact bilaterally Neck Neck: normal visual inspection Resp Effort & Inspection: normal respiratory effort and able to speak in complete sentences Auscultation: clear to auscultation bilaterally Cardio Rate: regular rate Rhythm: regular rhythm Heart Sounds: S1 normal, S2 normal and no murmurs GI Inspection: normal to inspection and incision (Surgical dressings clean and dry) Palpation: soft, no hepatosplenomegaly and tender (Mild, diffuse postsurgical tenderness) Auscultation: normal bowel sounds External Female Exam: other (No significant bleeding noted) Extrem General: no calf tenderness Psych Appearance: grossly normal Mental Status: mental status grossly normal Speech and Movement: speech and movement normal Mood: congruent mood Affect: normal affect Attitude: cooperative Thought Process: normal Thought Content: normal Judgment: judgment good [facility] Medical History Situational depression Impaired fasting blood sugar Dyslipidemia Foraminal stenosis of lumbosacral region Spondylolisthesis at L4-L5 level Lumbar pars defect Shortness of breath Edema, peripheral Oral herpes Varicose veins of bilateral lower extremities with other complications Surgical History Status post delivery (06/10/05) Status post delivery (03/16/04) Status post tubal ligation Status post delivery (08/16/02) Family History Father Age: 75 Hypertension CAD (coronary artery disease) Prostate cancer Hyperlipidemia Crohns disease Grandmother Colon cancer Mother Age: 73 Ulcerative colitis Grandfather AL (myocardial infarction) Social History (System 11/23/18 @ 11:49 by Alon Karimi) household members: spouse Smoking Status: Never smoker alcohol intake: current Discharge Assessment & Plan Assessment and Plan Assessment: Intractable menometrorrhagia Uterine fibroids Status post robotic assisted total laparoscopic hysterectomy with bilateral salpingectomy Plan of Treatment: Routine postoperative care with follow-up planned for 2 weeks after surgery or as needed. Discharge Plan Discharge Plan Provider Discharge Comment: Please review the written instructions you received when you were discharged from the hospital. Your follow-up appointment as scheduled for 2 weeks after surgery and I look forward to seeing you then. If however in the meanwhile you have any issues, concerns, or questions, please contact me either through the office phone at [phone], or via the patient portal. Discharge orders & Medications Discharge Orders: Discharge (Order); Ordered 06/29/25 Ordered By: Manuel Barker Prescriptions: New oxycodone 5 mg Tablet 5 mg PO Q6H PRN (Reason: Pain, Moderate (4-6)) Qty: 15 0RF ciprofloxacin HCl [Cipro] 500 mg tablet 500 mg PO BID 5 Days Qty: 10 0RF enoxaparin [Lovenox] 40 mg/0.4 mL syringe 40 mg SUBCUT DAILY 10 Days Qty: 4 0RF Continued (DME) Subcutaneous Supplies Kit See Rx Instructions .ROUTE .MEDSUPPLY Qty: 12 3RF Rx Instructions: As directed with semaglutide hydrochlorothiazide 12.5 mg tablet 12.5 mg PO DAILY Qty: 90 3RF lidocaine 5 % adhesive patch,medicated 1 patch topical DAILY Qty: 30 2RF Rx Instructions: leave on most painful area for up to 12 hrs lisinopril 40 mg tablet 40 mg PO DAILY Qty: 90 3RF Tirzepatide 10mg+cyanocobalamin 0.5mg per mL See Rx Instructions .ROUTE .COMPLEX Qty: 6 2RF Rx Instructions: Inject 7.5mg SQ weekly. After 4 weeks if inadequate effect and no side effects increase to 10mg weekly. OK to compound. [facility] Rx. Follow up/Referrals: Gregory Clemente ARNP [Primary Care Provider, Medical] Discharge Health Status Multidrug resistant organism: No MDRO Diet/Activity/Treatments Diet: Diet as Tolerated Activity: As tolerated Other treatments: Gayy-vcf-gpptgrc Tylenol and/or ibuprofen may be used as needed for additional pain relief. Qeox-fbk-noryyab stool softeners and/or MiraLax may be used as needed for constipation. Skin/Wound/Dressing Care Report to your healthcare provider any signs of infection, such as:: chills, fever, increased pain, unusual drainage and unusual redness Dressing: Dressings should be removed on the morning of 07/01/2025. Visit Report/Discharge Packet Instructions: DI for Hysterectomy, DI for Laparoscopy Stand Alone Forms: Surgery Discharge Print Language: Kinyarwanda Discharge Data Primary Care Provider: Gregory Clemente Attending Provider: Manuel Barker VTE Deep Vein Thrombosis/Pulmonary Embolism Present on Admission: No I[facility] PROFEE Charge Codes Discharge inpatient/observation: 52704
--- NOTE | 2025-06-29 09:01 | CM.DANOTE ---
Initial DCP Assessment Note. Review EMR and PT Interview. Met with patient at bedside to discuss discharge needs.PT is alert x 4 sitting up in bed. No acute distress. Patient lives independently with and drt home. POD#1: Hysterectomy. Payor:Leobardo Dan PCP: Dr Clemente Summary & Plan:?49 y/o female. Elective Hysterctomoy. Plan: Home later today with . Discharge Planning/Care Management CM Discharge Assessment Start: 06/28/25 12:31 Freq: Status: Active Protocol: Document 06/29/25 08:59 SM (Rec: 06/29/25 09:01 SM [id number]) Discharge Planning Assessment Assigned Discharge Smita Morales RN CM [employer] Provider Dr. Clemente Insurance [employer] Advance Directives? No History Provided By Patient,Medical Record Has Patient been No admitted in last 30 days? Prior Living House Arrangements Household Members spouse Type of Drives own vehicle transporation used prior to admit Independent with ADL Yes 's Is patient alert and Yes oriented? Caregiver for No Another Barriers to No Discharge Discharge Plan Home Transportation Arrangement Referrals Initiated None needed Review Status In Process Please Provide Date 06/29/25 Initial DC Assessment Was Performed Next Review Type Continued Stay Review Pre-Anesthesia Assessment. Start: 06/20/25 10:11 Freq: Status: Complete Protocol: Document 06/20/25 10:11 LB (Rec: 06/20/25 10:16 LB [id number]) Pre-Anesthesia Assessment PAC Comment 06/20/25 Chart review. Patient Information Chart Review Reviewed Via Diagnostic Results BMP/CMP,CBC Comment 01/26/25 at . Primary Care Gregory Clemente Provider Seen Specialist in Yes Last 12 Months Specialist Seen Nurse Practitioner Per Diem Primary Language Israeli Preferred Language Israeli Bucket Hooker Required No Height 154.94 cm Weight 104.326 kg Body Mass Index (BMI 43.4 ) Anesthesia Review No Requested Automatic Oven Operator No Smoking Status Never smoker Patient is No completely paralyzed or completely immobile Is patient on oxygen No ? Hx Sleep Apnea No Currently Taking a No Beta Matt Anti-Coagulant No Therapy Cardiac Testing No Hx Pacemaker/ICD No Diabetes No HgbA1C 4.9 Date 01/26/25 Hx Drug Resistant No Organism Presence of external No or internal medical devices? Lives With spouse Patient Discharge Return Home Plan Description Emergency Contact Jose Elias Torres - Name Emergency Contact [phone] Phone Number Advance Directives? No
[2025-06-29] MEDS: PHENAZOPYRIDINE 100 MG TABLET 200 MG PO (10:01)
[2025-06-29] MEDS: DOCUSATE 100 MG CAPSULE 200 MG PO (10:02)
[2025-06-29] MEDS: LIDOCAINE 5% PATCH 1 EACH TOP (10:03)
[2025-06-29] MEDS: ENOXAPARIN 40 MG/0.4 ML SYRINGE SUBCUT (13:03)
--- NOTE | 2025-06-29 13:25 | PC.NURSE ---
Pt A/O. Lap sites x 5 across abdomen CDI. Ambulated in hallway w/o incidents. Orders for D/C received; SL D/C intact; Home instructions given w/ understanding Pt escorted by staff via W/C to waiting vehicle. D/C in stable post-op status.
--- NOTE | 2025-07-02 | PATH_ITS ---
[facility] Accession Number: [id number] No. of containers..01 Tissue . 01 Material submitted: . uterus - UTERUS, CERVIX, BILAT TUBE SEGMENTS . 01 Diagnosis: UTERUS, CERVIX, BILATERAL TUBE SEGMENTS, ROBOT ASSISTED TOTAL LAPAROSCOPIC HYSTERECTOMY WITH BILATERAL SALPINGECTOMY (116 GRAMS): Cervix with no significant histomorphologic abnormality. Endocervix with prominent Nabothian gland cysts; negative for significant atypia. Proliferative endometrium; negative for endometrioid intraeptheial neoplasia or malignancy. Myometrium with an intramural leiomyoma (2.8 cm in greatest dimension); negative for significant cytologic atypia, increased mitotic activity or regions of necrosis. Uterine serosa with no significant histomorphology abnormality. First described segment of fallopian tube, complete cross-sections; negative for significant atypia. Second described segment of fallopian tube, complete cross-section; one benign paratubal cyst (4 mm); negative for significant atypia. [facility] 07/17/2025 1150 Local . 01 Electronically signed: . Alma Rosa Frances MD, Pathologist NPI- [id number] . 01 Gross description: . The specimen is received in formalin with two patient identifiers and uterus, cervix, bilateral tube segments. The specimen consists of a uterus with attached cervix and two detached segments of fimbriated fallopian tube. The uterine corpus measures 9.5 x 5.5 x 5.1 cm (116 grams) and is surfaced by a hansen-pink, smooth glistening serosal surface. The right parametrium is inked red, and the left parametrium is inked yellow. There is a 3.0 x 2.9 x 1.3 cm attached cervix that has a smooth white glistening endocervical mucosa with a 0.6 cm slit-like patent endocervical os. The endocervical canal is hansen, trabeculated, and free of exophytic lesions with multiple unilocular, simple, serous fluid-filled endocervical cysts ranging from 0.2 cm up to 0.6 cm in greatest dimension. Sectioning of the myometrium shows a hansen-white, slightly trabeculated cut surface measuring up to 1.7 cm in thickness. In addition, there is a 2.8 x 2.5 x 2.4 cm, white, whorled, well circumscribed, intramural myometrial nodule which upon further sectioning shows focal areas of hemorrhage. No cystic change or necrosis is identified. There is a 3.1 x 2.2 cm hemorrhagic, slightly shaggy, finely granular endometrial lining which averages 0.2 cm in thickness. There are no endometrial polyps or masses appreciated. There are two segments of fimbriated fallopian tube, the first measures 1.8 cm in length by 0.6 cm in diameter and has a hansen-purple, smooth, glistening serosal surface. Sectioning show a 0.3 cm stellate lumen. The second segment of fimbriated fallopian tube measures 3.0 cm in length by 0.5 cm in diameter, and is surfaced by a hansen-purple serosal surface with a 0.4 cm in greatest dimension, unilocular, smooth walled, serous fluid-filled paratubal cyst. Sectioning shows a 0.3 cm stellate lumen. Chief Specialist Leed sections are submitted as follows: . A1: Posterior cervix. A2: Anterior cervix. A3: Full thickness endomyometrium, posterior. A4: Full thickness endomyometrium, anterior. A5: Myometrial nodule with focal areas of hemorrhage. A6: Additional sections of myometrial nodule. A7: Fallopian tube 1, entirely submitted. A8: Fallopian tube 2 to include entire fimbriated end, paratubal cyst, and franchise sales representative cross-sections. ([id number]) /MRV 07/03/2025 [facility] Local . 01 Pathologist provided ICD-10: N92.0 . 01 CPT . 864759 Specimen Comment: A courtesy copy of this report has been sent to [phone] Performed at: [address] [facility] [place], [place], [place] [id number] MD Iban Simmons MD Phone: [phone]
== END 2025-06-29 13:29 | disposition home or self-care (01) ==
LOC: OR 06:28 → AC 12:24
PROVIDERS: PCP Registered Nurse Diabetes Educator; Referring Provider Obstetrics & Gynecology; Visit Provider Obstetrics & Gynecology
PROC: 0UT94ZZ Resection of Uterus, Percutaneous Endoscopic Approach (ICD-10-PCS; CPT 58571; principal; 2025-06-28 07:45)
DX: N92.0 Excessive and frequent menstruation with regular cycle (principal); N73.6 Female pelvic peritoneal adhesions (postinfective); D25.9 Leiomyoma of uterus, unspecified; N88.8 Other specified noninflammatory disorders of cervix uteri; D25.1 Intramural leiomyoma of uterus; N83.8 Other noninflammatory disorders of ovary, fallopian tube and broad ligament
CPT/HCPCS: 58571; S2900; J0689; J1100; J1171; J1650; J1885; J2250; J2405; J2704; J3010; J3475; J3490; J7120; J7613

== ENCOUNTER → 2025-08-07 08:52 | Outpatient (CLI) | payer OTHER, SELFPAY ==
[2025-07-10 02:17] VITALS: BMI 42.3
--- NOTE | 2025-08-07 08:53 | DI.CT.S_ITS ---
PROCEDURE: CT PEL WO CON INDICATIONS: Eval resolution of cuff abcess s/p hyst TECHNIQUE: Noncontrast 3 mm axial sections acquired through the bony pelvis, with coronal and sagittal reformatting. COMPARISON: [facility], CT, CT ABDOMEN PELVIS W CON, 07/09/2025, 23:41. FINDINGS: Image quality: Excellent. Bones: Pelvic ring is intact. No acute fracture or dislocation. Mild osteoarthritic changes throughout bony pelvis. No evidence of avascular necrosis of femoral heads. No suspicious intraosseous lesion. Soft tissues: There is prior hysterectomy. Previously described abscess collection posterior to the urinary bladder at the region of agile cuff is no longer present consistent with resolution of abscess collection. Mild diffuse bladder wall thickening with perivesicular fat stranding concerning for cystitis. Simple appearing cystic structure is noted in right adnexa a not seen on previous study and measures 3.7 x 4.1 cm in size series 2, image 36. No peritoneal free fluid or free air. Borderline enlarged right inguinal lymph no measures up to 1 cm in short axis diameter is seen series 2, image 43. No other pelvic lymphadenopathy. IMPRESSION: 1. Interval resolution of previously noted small abscess collection at the region of vaginal cuff. No drainable abscess collection is seen on the current study. 2. Cystic structures seen in right adnexa which may represent ovarian cyst suggest pelvic ultrasound for further evaluation. 3. Diffuse bladder wall thickening and perivesicular fat stranding concerning for low-grade cystitis. No discrete bladder wall mass. 4. No abnormal bowel wall thickening. No peritoneal free fluid or free air. Dictated by: Srikanth Melo M.D. on 08/07/2025 at 10:57 Approved by: Srikanth Melo M.D. on 08/07/2025 at 11:07
== END ==
LOC: CT 08:52
PROVIDERS: PCP Registered Nurse Diabetes Educator; Referring Provider Obstetrics & Gynecology; Visit Provider Obstetrics & Gynecology
DX: N73.9 Female pelvic inflammatory disease, unspecified (principal); Z90.710 Acquired absence of both cervix and uterus
CPT/HCPCS: 72192